=== PATIENT | female | born 2000 | race Caucasian/White ===

== ENCOUNTER 2024-04-18 09:39 | Outpatient (RCR) | payer OTHER, SELFPAY ==
[2024-04-18 11:15] VITALS: BP 99/66; PULSE 100; TEMP 36.1; O2SAT 100
[2024-04-18] MEDS: RHO(D) IMMUNE GLOBULIN 1,500 UNIT SYRINGE 1500 UNIT IM (11:15)
--- NOTE | 2024-04-18 11:29 | PC.NURSE ---
1115: Pt. to [facility] amb. for Rhogam injection. Seated in recliner. VSS. Blood type verified. Medicated with Rhophylac IM see documentation. No bleeding to injection site, bandaid placed prophylactically. Pt. tolerated with minimal c/o pain. Pt. has received medication in past without adverse reaction. Denies questions or concerns. 1126: D/c'd amb to home.
== END 2024-05-04 23:59 | disposition home or self-care (01) ==
LOC: INF 09:39
PROVIDERS: PCP Family Medicine; Visit Provider Midwife
DX: O26.893 Other specified pregnancy related conditions, third trimester (principal); Z67.91 Unspecified blood type, Rh negative; Z3A.00 Weeks of gestation of pregnancy not specified
CPT/HCPCS: 36415; 86850; 86900; 86901; 96372; J2791

== ENCOUNTER 2024-06-23 19:36 | Inpatient (IN) | payer OTHER, SELFPAY ==
[2024-06-23] VITALS (15 sets, daily range): BP systolic 115–141; BP diastolic 56–84; PULSE 100–126
--- OUTSIDE RECORDS SUMMARY | 2024-06-23 19:40 | XMS_ITS | CCD ---
Author Organization [facility] Inform ion Partnership [facility] Care Team Providers Care Submersible Pilot Name Role Phone Unavailable Primary Care Provider VAISHALI Jordan Attending Unavailable FELICITAS BOOTHE Referring Unavailable Urbano Rich MD Primary Care Provider [phone] FLORO, ISIDRA L Attending Unavailable FLORO, ISIDRA L Referring Unavailable FLORO, ISIDRA L Attending Unavailable FLORO, ISIDRA L Attending Unavailable FLORO, ISIDRA L Referring Unavailable FLORO, ISIDRA L Attending Unavailable FLORO, ISIDRA L Attending Unavailable FLORO, ISIDRA L Referring Unavailable FLORO, ISIDRA L Attending Unavailable FLORO, ISIDRA L Attending Unavailable FLORO, ISIDRA L Attending Unavailable FLORO, ISIDRA L Attending Unavailable Medications Current Medications Medication Drug Class(es) Dates Sig (Normalized) Sig (Original) multivit 82-oivd-ifrpjp 1-dha (PNV-DHA) 27 mg iron-1 mg -300 mg capsule (2 sources) Start: 08-29-2023 take 1 capsule by mouth in the morning multivit 13-lkdf-gigtek 1-dha (PNV-DHA) 27 mg iron-1 mg -300 mg capsule Indications: Desire for Take 1 capsule by mouth in the morning. 90 capsule 3 08/29/2023 Active Prenat w/o F-CD-Yizsyal-FA-DHA (PNV-DHA) 27-0.6-0.4-300 MG capsule (6 sources) Start: 08-29-2023 take 1 capsule by mouth in the morning Prenat w/o F-KL-Stqrlsw-FA-DH A (PNV-DHA) 27-0.6-0.4-300 MG capsule Take 1 capsule by mouth in the morning. 08/29/2023 Active Problems Active Problems Problem Classification Problem Date Documented Da te Episodic/Chronic Contraceptive and procreative management (4 sources) Social and personal history finding; Translations: [Encounter for procreative management, unspecified] Onset: 08-29-2023 08-29-2023 Episodic Other complications of (2 sources) RhD negative; Translations: [Other specified related conditions, third trimester] 2024 Episodic Other and delivery including normal (4 sources) Normal ; Translations: [Encounter for supervision of other normal , third trimester] 06-05-2024 Episodic Other screening for suspected conditions (not mental disorders or infectious disease) (3 sources) Encounter for screening for malignant neoplasm of vagina; Translations: [Patient encounter status] Onset: 09-20-2023 06-05-2024 Episodic Unclassified (1 source) Annual Exam Onset: 09-20-2023 Past or Other Problems Problem Classification Problem Date Documented Da te Episodic/Chronic Mood disorders (1 source) Mood disorders Onset: 09-20-2023 09-20-2023 Results Test Name Value Interpretation Reference Range Facil ity US OB FOLLOW UP TRANSABDOMIN AL APPROACHon 04-24-2024 US OB FOLLOW UP TRANSABDOMINAL APPROACH TITLE OF EXAM: OB Ultrasound: REASON FOR EXAM: Growth. TECHNIQUE: Grayscale and color Doppler imaging is performed. Measurements: heart rate: 143 bpm CHAKA: 14.9 cm (9.0-23.4) BPD: 7.7 cm HC: 27.6 cm AC: 26.0 cm FL: 5.8 cm GA for sonogram: 30.0 wk (28.2-31.8) Cervix length: 3.7 cm HARLEY: 07/03/2024 Weight Estimate: Weight: 1542 gm / 3lbs, 6 oz (9733-6086 gm) [place]lock Normal: 1559 gm (8308-3918 gm) Hadlock Wt%: 47% for 30.0 wks CLINICAL SUMMARY: A single intrauterine is noted in cephalic presentation. heart is observed with a heart rate of 143 BPM. growth: Consistent with normal growth. Placenta is located posteriorly. Placenta is Grade I/III Amniotic fluid volume is normal. Limited study. Full anatomical survey not performed. Dictated and transcribed 04/25/24/dpd This report has been electronically signed and approved by the interpreting radiologist. Electronically Signed Werner Astudillo M.D. 2024-04-25 16:43:45 Normal Not Available US OB 14+ WEEKS ANATOMY SCAN on 02-15-2024 US OB 14+ WEEKS ANATOMY SCAN FINDINGS: A single, live intrauterine is present with normal cardiac rate of 147 beats per minute. Normal activity and amniotic fluid volume. Amniotic fluid index is 13 cm. Morphology is grossly normal. The cervix is long and closed, 4.1 cm. The placenta is posterior, not associated with the cervical os. The current sonographic age is 20 weeks and 1 day, based on the following measurements: BPD 4.7 cm (20 weeks, 0 days) Head Circumference 17.5 cm (20 weeks, 0 days) Abdominal Circumference 15.1 cm (20 weeks, 2 days) Femur Length 3.2 cm (20 weeks, 1 day) Presentation Breech Placenta Posterior Weight (g) by Percentile 47.6 % * These measurements result in an estimated date of delivery of July 03, 2024. The current estimated weight is 338 grams (0 pounds, 12 ounces). IMPRESSION: Single, live intrauterine , current sonographic age of 20 weeks and 1 day, with an estimated date of delivery of July 03, 2024. * Estimated Weight (g) by Percentile is based upon an accurate estimated age based on last menstrual period. TRANSCRIBED BY: ELECTRONICALLY SIGNED BY: Domenico Leach MD Normal Not Available US OB < 14 WEEKS EARLYon US OB < 14 WEEKS EARLY CLINICAL HISTORY: Dating. Amenorrhea. Age by LMP of 10 weeks 1 day COMPARISON: None available for this TECHNIQUE: Transabdominal and transvaginal ultrasound was performed of the pelvis. RESULT: An approximately 4.9 cm in average dimension gestational sac is present within the central aspect of the uterine body/fundus, without significant surrounding subchorionic hemorrhage. Yolk sac not visualized. [place] rump length measures 3.5 cm, which corresponds to 10 weeks 3 days. The estimated date of delivery by measurements is: 06/30/2024. The estimated date of delivery by LMP is: 07/03/2024. cardiac activity measures approximately 153, without visualized arrhythmia. The cervix appears closed, measuring approximately 4.2 cm. There is no significant free fluid, or other findings of concern. The uterus measures: 10.5 x 9.1 x 5.9 cm. The right ovary was not visualized. The left ovary measures: 2.5 x 2.0 x 1.7 cm. IMPRESSION: SINGLE LIVE INTRAUTERINE CORRESPONDING TO 10 weeks 3 days NO OTHER FINDINGS OF CONCERN. ELECTRONICALLY SIGNED BY: Shantanu Holland MD Normal Not Available Cytologyon 09-20-2023 Cytology Normal [facility] Comment on above: Result Comment: [facility] [address] [place] [address] Gynecologic Cytology Consultation Patient Name:CHEYANNE CARRANZA:2000 (Age: 23)Gender:FTaken:4Reported:4Physician(s):Felicitas Boothe C.N.M. ([phone])Copy To: Rec. #:[id number]: #[id number] Final Cytologic Interpretation ThinPrep Pap Test (Cervical): Satisfactory for evaluation. A transformation zone component is present. Partially obscuring lubricant-type artifact present. NEGATIVE FOR INTRAEPITHELIAL LESION OR MALIGNANCY. [facility]/09/27/2023 [place] [address], License number: [id number]. Electronically Signed Out By PHIL Aparicio(ASCP) Date of Last Menstrual Period: (None Given) Other Clinical Conditions: Z01.419 Home Health Physical Therapist exam wo/abn findings Z12.72 Screeing for malignant neoplasm of vagina Source of Specimen ThinPrep Pap Test (Cervical) Thin Prep Pap (WELDING MACHINE OPERATOR THERMIT) Fee Code(s): G0145 Vital Signs Date Time Vital Sign Value Performing Clinician Gianna white 2024 08:54-0400 Body mass index (BMI) [Ratio] 27.72 kg/m2 Isidra Rowe [facility] Work Phone: [facility] 2024 08:54-0400 Body weight 80.29 kg Isidra Rowe [facility] Work Phone: [facility] 2024 08:54-0400 Diastolic blood pressure 70 mm[Hg] Isidra Floro CNM Work Phone: [facility] 2024 08:54-0400 Systolic blood pressure 118 mm[Hg] Isidra Floro CNM Work Phone: [facility] 06-05-2024 08:45-0400 Body mass index (BMI) [Ratio] 27.41 kg/m2 Isidra Floro CNM Work Phone: [facility] 06-05-2024 08:45-0400 Body weight 79.38 kg Isirda Floro CNM Work Phone: [facility] 06-05-2024 08:45-0400 Diastolic blood pressure 80 mm[Hg] Isidra Floro CNM Work Phone: [facility] 06-05-2024 08:45-0400 Systolic blood pressure 118 mm[Hg] Isidra Floro CNM Work Phone: [facility] 09-20-2023 15:07-0500 Body height 170.2 cm [facility] 09-20-2023 15:07-0500 Body mass index (BMI) [Ratio] 22.84 kg/m2 [facility] 09-20-2023 15:07-0500 Body weight 66.13 kg [facility] 09-20-2023 15:07-0500 Diastolic blood pressure 64 mm[Hg] [facility] 09-20-2023 15:07-0500 Systolic blood pressure 112 mm[Hg] [facility] 08-29-2023 14:22-0500 Body height 170.2 cm Vaishali Bowden APRN-HEAVY LIFT RIGGER Work Phone: [facility] 08-29-2023 14:22-0500 Body mass index (BMI) [Ratio] 23.05 kg/m2 Vaishali Bowden APRN-HEAVY LIFT RIGGER Work Phone: [facility] 08-29-2023 14:22-0500 Body weight 66.77 kg Vaishali Bowden QUALITY SYSTEMS MANAGER-HEAVY LIFT RIGGER Work Phone: [facility] [employer] [facility] 08-29-2023 14:22-0500 Diastolic blood pressure 62 mm[Hg] Vaishali Bowden QUALITY SYSTEMS MANAGER-HEAVY LIFT RIGGER Work Phone: [facility] [employer] [facility] 08-29-2023 14:22-0500 Systolic blood pressure 116 mm[Hg] Vaishali Bowden QUALITY SYSTEMS MANAGER-HEAVY LIFT RIGGER Work Phone: [facility] Encounters Encounter Date Encounter Type Care Provider Facility Start: 2024 End: 2024 Bamboo flowsheet Isidra L Floro CNM Work Phone: [facility] Start: 2024 End: 2024 Bamboo flowsheet Isidra L Floro CNM Work Phone: [facility] Start: 2024 End: 2024 ambulatory ISIDRA L FLORO Not Available Start: 2024 End: 2024 Subsequent care visit Isidra L Floro CNM Work Phone: [facility] Comment on above: Encounter for superv ision of other normal , third trimester (Primary Dx); Rh negative state in antepartum period, third trimester Start: 06-05-2024 End: 06-05-2024 Bamboo flowsheet Isidra L Floro CNM Work Phone: [facility] Start: 06-05-2024 End: 06-05-2024 Bamboo flowsheet Isidra L Floro CNM Work Phone: [facility] Start: 06-05-2024 End: 06-05-2024 ambulatory ISIDRA L FLORO Not Available Start: 06-05-2024 End: 06-05-2024 Subsequent care visit Isidra L Floro CNM Work Phone: [facility] Comment on above: Encounter for superv ision of other normal , third trimester (Primary Dx); screening for streptococcus B Start: 05-28-2024 End: 05-28-2024 ambulatory ISIDRA L FLORO Not Available Start: 05-08-2024 End: 05-08-2024 ambulatory ISIDRA L FLORO Not Available Start: 04-24-2024 End: 04-24-2024 ambulatory ISIDRA L FLORO Not Available Start: 04-10-2024 End: 04-10-2024 ambulatory ISIDRA L FLORO Not Available Start: 03-05-2024 End: 03-05-2024 ambulatory ISIDRA L FLORO Not Available Start: 02-15-2024 End: 02-15-2024 ambulatory ISIDRA L FLORO Not Available Start: 02-01-2024 End: 02-01-2024 ambulatory ISIDRA L FLORO Not Available Start: 01-04-2024 End: 01-04-2024 ambulatory ISIDRA L FLORO Not Available Start: 12-07-2023 End: 12-07-2023 ambulatory ISIDRA L FLORO Not Available Start: 09-20-2023 End: 09-20-2023 ambulatory [facility] Start: 09-20-2023 Encounter for gynecological examination (general) (routine) without abnormal findings [facility] Start: 09-20-2023 End: 09-20-2023 Initial preventive medicine new pt age 18-39yrs [facility] Bull Gang Worker [facility] Comment on above: Well woman exam with routine gynecological exam (Primary Dx); Smear, vaginal, as part of routine gynecological examination Start: 09-20-2023 End: 09-20-2023 Patient encounter procedure [facility] Work Phone: Start: 09-20-2023 End: 09-20-2023 Patient encounter status [facility] Start: 09-20-2023 End: 09-21-2023 ambulatory [facility] Start: 09-20-2023 Encounter for gynecological examination (general) (routine) without abnormal findings [facility] Start: 08-29-2023 End: 08-29-2023 ambulatory VAISHALI BOWDEN [facility] Start: 08-29-2023 End: 08-29-2023 Patient encounter procedure Vaishali Bowden QUALITY SYSTEMS MANAGER-HEAVY LIFT RIGGER Work Phone: [facility] Comment on above: Encounter for Nexpla non removal (Primary Dx); Desire for Procedures Date Procedure Procedure Detail Performing Clinician Start: 09-20-2023 Adult depression scr eening assessment [facility] Bull Gang Worker Plan of Treatment Date Care Activity Detail Author Start: 09-20-2024 Adult BMI Screening Adult BMI Screen ing [facility] Start: 09-20-2024 Depression Screening Depression Scre ening [facility] Start: 09-20-2024 Tobacco Screening Tobacco Screening [facility] Start: 08-29-2024 Adult BMI Screening Adult BMI Screen ing [facility] Start: 08-29-2024 Tobacco Screening Tobacco Screening [facility] Start: 07-01-2024 End: 07-01-2024 Patient encounter procedure 07/01/2024 1:30 PM EDT Routine [facility] [address] [place] [address] Isidra Rowe, CNM [address] [place] [address] [facility] Start: 06-24-2024 End: 06-24-2024 Patient encounter procedure 06/24/2024 2:30 PM EDT Routine [facility] [address] [place] [address] Isidra Rowe, CNM [address] [place] [address] [facility] Start: 2024 End: 2024 Patient encounter procedure 2024 8:45 AM EDT Routine [facility] [address] [place] [id number] Isidra Rowe, CNM [address] [place] [address] [facility] Start: 06-05-2024 End: 06-05-2025 STREPTOCCOUS, GROUP B CULTURE STREPTOCCOUS, GROUP B CULTURE Lab Routine screening for streptococcus B Expected: 06/05/2024 (Approximate), Expires: 06/05/2025 [facility] Work Phone: Comment on above: Expected: 06/05/2024 (Approximate), Expires: 06/05/2025 Start: 05-05-2024 Influenza vaccination Influenza Vacc ine (#1) [facility] Start: 09-20-2023 End: 09-20-2023 Patient encounter procedure 09/20/2023 2:45 PM EST Office Visit [facility] [address] [place] [place] [address] [facility] Start: 05-05-2023 Influenza vaccination Influenza Vacc ine [facility] Start: 2019 Screening for malign ant neoplasm of cervix Pap Smear [facility] Start: 2017 DTaP,Tdap and Td Vaccines (1 - Tdap) DTaP,Tdap and Td Vaccines (1 - Tdap) [facility] Start: 2010 Depression Screening Depression [facility] End: 09-20-2024 Cytopathology procedure, preparation of smear, genital source Pap Smear Pathology and Cytology Routine Smear, vaginal, as part of routine gynecological examination 1 Occurrences starting 09/20/2023 until 09/20/2024 [facility] Work Phone: Comment on above: 1 Occurrences starti ng 09/20/2023 until 09/20/2024 Immunizations Immunization Date Immunization Notes Care Provider Fa cility 09-11-2020 influenza virus vacc ine, unspecified formulation Isidra Rowe CNM Work Phone: [facility] Healthcare Payers Date Payer Category Payer Unknown [id number] 2023 Unknown 2023 Unknown [id number] 2000 Unknown [id number] 2.16.84 [id number] 2000 Unknown [id number] 2.16.84 0.1.680770.3.579.2.1286 2000 Unknown [id number] 2.16.84 0.1.574416.3.579.2.1286 2000 Unknown [id number] 2.16.84 0.1.043171.3.579.2.1259 2000 Unknown [id number] 2.16.84 0.1.928532.3.579.2.1259 2000 Unknown [id number] 2.16.84 0.1.844902.3.579.2.1259 2000 Unknown [id number] 2.16.84 0.1.563257.3.579.2.1259 2000 Unknown [id number] 2.16.84 0.1.646964.3.579.2.1259 2000 Unknown [id number] 2.16.84 0.1.718132.3.579.2.1259 1998 Unknown [id number] 2.16.84 0.1.034105.3.579.2.1259 1998 Unknown [id number] 2.16.84 0.1.543904.3.579.2.1259 1998 Unknown [id number] 2.16.84 0.1.351246.3.579.2.1259 1998 Unknown [id number] 2.16.84 0.1.393571.3.579.2.1259 1998 Unknown [id number] 2.16.84 0.1.377246.3.579.2.1259 2000 Unknown [id number] 2.16.84 0.1.053781.3.579.2.1259 Social History Date Type Detail Facility Start: 08-29-2023 End: 12-07-2023 Tobacco smoking status NHIS Never smoked tobacco [facility] Start: 08-29-2023 End: 12-07-2023 Tobacco use and exposure Smokeless tobacco non-user [facility] Start: 08-29-2023 End: 09-20-2023 Alcohol intake Current drinker of alcohol (finding) [facility] Start: 08-29-2023 End: 12-07-2023 History of Social function [facility] Start: 08-29-2023 End: 12-07-2023 Tobacco use panel [facility] Housing Instability Unknown [facility] Start: 08-29-2023 Alcohol Comment social [facility] Start: 2000 Sex Assigned At Not on file P [facility] How often to you hav e a drink containing alcohol? Monthly or less [facility] How many standard dr inks containing alcohol do you have on a typical day? 3 or 4 [facility] How often do you hav e 6 or more drinks on 1 occasion? Never [facility] Start: 12-07-2023 Alcoholic beverage intake Ex-drinker (finding) [facility] Start: 10-11-2023 [facility] History of Present illness Narrative 2024 Isidra Rowe CNM - 2024 8:45 AM EDT Note Date & Type Note Facility 2024 History of Presen t illness Narrative Subjective No chief complaint on file. Cheyanne Carranza is a 24 y.o. at 37w0d with a working estimated date of delivery of 07/03/2024, by Last Menstrual Period who presents for a routine visit. She denies vaginal bleeding, leakage of fluid, decreased movements, or contractions. OB History Para Term AB Living 2 1 1 1 SAB IAB Ectopic Multiple Live Births 1 # Outcome Date GA Lbr Nathan/2nd Weight Sex Type Anes PTL Lv 2 Current 1 Term 11/23/20 38w0d 7 lb 4 oz M Vag-Spont N DEVANG Her is complicated by: Rh- negative Objective Physical Exam weight: 177 lb Expected Total Weight Gain: 25 lb-35 lb Pregravid BMI: 23.49 BP: 118/70 Urine protein- negative Urine glucose- negative Assessment/Plan Diagnoses and all orders for this visit: Encounter for supervision of other normal , third trimester Rh negative state in antepartum period, third trimester Continue vitamin. Labs reviewed. GBS taken. Expected mode of delivery Follow up in 1 week for a routine visit. documented in this encounter [facility] History of Present illness Narrative 06-05-2024 Isidra Rowe CNM - 06/05/2024 8:45 AM EDT Note Date & Type Note Facility 06-05-2024 History of Presen t illness Narrative Subjective No chief complaint on file. Cheyanne Carranza is a 23 y.o. at 36w0d with a working estimated date of delivery of 07/03/2024, by Last Menstrual Period who presents for a routine visit. She denies vaginal bleeding, leakage of fluid, decreased movements, or contractions. OB History Para Term AB Living 2 1 1 1 SAB IAB Ectopic Multiple Live Births 1 # Outcome Date GA Lbr Nathan/2nd Weight Sex Type Anes PTL Lv 2 Current 1 Term 11/23/20 38w0d 7 lb 4 oz M Vag-Spont N DEVANG Her is complicated by: Objective Physical Exam weight: 175 lb Expected Total Weight Gain: 25 lb-35 lb Pregravid BMI: 23.49 BP: 118/80 Urine protein-negative Urine glucose-negative Assessment/Plan Diagnoses and all orders for this visit: Encounter for supervision of other normal , third trimester screening for streptococcus B - STREPTOCCOUS, GROUP B CULTURE; Future Continue vitamin. Labs reviewed. GBS obtained today Expected mode of delivery Follow up in 1 week for a routine visit. documented in this encounter [facility] History of Present illness Narrative 09-20-2023 ATILIO Bishop - 09/20/2023 2:45 PM EST Note Date & Type Note Facility 09-20-2023 History of Present illness Narrative Annual Well Woman Visit 09/20/2023 Subjective Cheyanne Carranza is a 23 y.o. 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 Periods are regular every 28-30 days, lasting 4 days. Dysmenorrhea:mild, occurring first 1-2 days of flow. Cyclic symptoms include none. intermenstrual bleeding, spotting, or abnormal discharge. denies pelvic pain. Patient declines STD testing today. Pt. Reports improvement in mood since having nexplanon removed about 3wks. Ago. Complaints today: none Relationship status: The patient reports that there is not domestic violence in her life. Sexually active: Yes Contraception: no method, trying to conceive. Has had nexplanon removed 3 wks. Ago. 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 Ago age 19, wnl Regular self breast exam: no Last mammogram: N/A Covid vaccinated: no Flu shot this flu season: no; declines HPV vaccinated: rec.'d PHQ9 depression screenin LMP 08/08/2023 OB History 1 Para 1 Term 1 AB Living SAB IAB Ectopic Multiple Live Births The following portions of the patient's history were reviewed and updated as appropriate: allergies, current medications, past family history, past medical history, past social history, past surgical history and problem list. MEDICAL HX Past Medical History: Diagnosis Date Back pain PTSD (post-traumatic stress disorder) SURGICAL HX No past surgical history on file. FAMILY HX Family History Problem Relation Age of Onset Hypertension Paternal Grandmother Diabetes Maternal Grandmother MEDS Current Outpatient Medications Medication Sig Dispense Refill multivit 90-adtf-okdjwv 1-dha (PNV-DHA) 27 mg iron-1 mg -300 mg capsule Take 1 capsule by mouth in the morning. 90 capsule 3 No current facility-administered medications for this visit. ALLERGIES No Known Allergies Review of Systems Review of Systems Constitutional: Negative for chills and fever. HENT: Negative for ear pain, sinus pain and sore throat. Eyes: Negative for pain. Respiratory: Negative for cough and shortness of breath. Cardiovascular: Negative for chest pain and palpitations. Gastrointestinal: Negative for abdominal pain, constipation, diarrhea, nausea and vomiting. Genitourinary: Negative for difficulty urinating, dyspareunia, dysuria, pelvic pain and vaginal discharge. Skin: Negative for rash and wound. Psychiatric/Behavioral: Positive for dysphoric mood. The patient is nervous/anxious. Pt. Denies suicidal and homicidal ideations. She denies suicidal attempts in her past. Pt. [facility] whom she saw once. He has referred her to a female counselor w/whom she will have a telehealth visit next week for PTSD and depression. Objective BP 112/64 Ht 170.2 cm (5' 7 ) Wt 66.1 kg (145 lb 12.8 oz) LMP 08/08/2023 (Exact Date) BMI 22.84 kg/m Physical Exam Vitals and nursing note reviewed. Constitutional: Appearance: Normal appearance. She is normal weight. HENT: Head: Normocephalic and atraumatic. Eyes: Conjunctiva/sclera: Conjunctivae normal. Neck: Thyroid: No thyroid mass, thyromegaly or thyroid tenderness. Trachea: Trachea normal. Cardiovascular: Rate and Rhythm: Normal rate and regular rhythm. Heart sounds: Normal heart sounds. Pulmonary: Effort: Pulmonary effort is normal. Breath sounds: Normal breath sounds. Chest: Chest wall: No mass, lacerations, deformity, swelling or tenderness. Breasts: Breasts are symmetrical. Right: Normal. Left: Normal. Abdominal: General: Abdomen is flat. There is no distension. Palpations: Abdomen is soft. There is no mass. Tenderness: There is no abdominal tenderness. There is no guarding or rebound. Hernia: No hernia is present. Genitourinary: General: Normal vulva. Exam position: Supine. Pubic Area: No rash or pubic lice. Labia: Right: No rash, tenderness, lesion or injury. Left: No rash, tenderness, lesion or injury. Urethra: No prolapse, urethral pain, urethral swelling or urethral lesion. Vagina: Normal. Cervix: Normal. Uterus: Normal. Adnexa: Right adnexa normal and left adnexa normal. Rectum: No external hemorrhoid. Musculoskeletal: Cervical back: Neck supple. No rigidity or tenderness. Lymphadenopathy: Cervical: No cervical adenopathy. Upper Body: Right upper body: No axillary adenopathy. Left upper body: No axillary adenopathy. Skin: General: Skin is warm and dry. Neurological: General: No focal deficit present. Mental Status: She is alert. Psychiatric: Mood and Affect: Mood normal. Behavior: Behavior normal. Thought Content: Thought content normal. Judgment: Judgment normal. Assessment/Plan: Cheyanne was seen today for annual exam. Diagnoses and all orders for this visit: Well woman exam with routine gynecological exam Smear, vaginal, as part of routine gynecological examination - Pap Smear; Future BMI is in the acceptable range. Breast self exam technique reviewed and patient encouraged to perform self-exam monthly. Discussed healthy lifestyle modifications. Educational material distributed. Follow up in 1 year for annual lab support technician exam. Follow up as needed. Next pap due pending results of today's per ASCCP guidelines. Discussed taking a multivitamin. Discussed Genesite testing for genetic evaluation of response to antidepressants and brochure provided to pt. Discussed need for yearly mammogram after 40 yo. Continue vitamin, discussed avoidance of toxic substances All questions answered. F/U for or no after 6mo. Of trying and annual exam in a yr. ATILIO Diego APRN-CNM 09/20/23 1720 documented in this encounter [facility] History of Present illness Narrative 08-29-2023 KISHOR Subramanian - 08/29/2023 2:30 PM EST Note Date & Type Note Facility 08-29-2023 History of Presen t illness Narrative Nexplanon Contraceptive Implant Removal Cheyanne Carranza is a new patient who presents for the removal of the Nexplanon. Reason(s) for removal: Desires Her future method of contraception: no method- planning to conceive BP 116/62 Ht 170.2 cm (5' 7 ) Wt 66.8 kg (147 lb 3.2 oz) LMP 08/08/2023 (Exact Date) BMI 23.05 kg/m Procedure: Implant identified. Left upper arm prepped with betadine x 3. 1 ml. 1% xylocaine injected at planned incision site. An incision 2-3 mm was performed with a #15 scalpel at the distal end of implant. The implant was removed using pop out technique. The implant was inspected and found to be intact and complete. Steri strips and a pressure dressing were applied to the site. Removal was confirmed with the patient. After removal instructions were given and verbally reviewed with the patient who acknowledged her understanding. Patient tolerated procedure well yes Patient due for annual / pap. RX sent for vitamins. All questions answered. Educational material provided. ANA FUNES APRN-CNP Lisa M Franco, APRN-CNP 08/29/23 1505 documented in this encounter [facility] Evaluation note Note Date & Type Note Facility Evaluation note Diagnosis Encounter for Nexplanon removal- Primary Desire for documented in this encounter [facility] Evaluation note Note Date & Type Note Facility Evaluation note Diagnosis Well woman exam with routine gynecological exam- Primary Routine gynecological examination Smear, vaginal, as part of routine gynecological examination Special screening for malignant neoplasms, vagina documented in this encounter [facility] Evaluation note Note Date & Type Note Facility Evaluation note Diagnosis Encounter for supervision of other normal , third trimester- Primary screening for streptococcus B screening for Streptococcus B documented in this encounter [facility] Evaluation note Note Date & Type Note Facility Evaluation note Diagnosis Encounter for supervision of other normal , third trimester- Primary Rh negative state in antepartum period, third trimester documented in this encounter [facility] Instructions Attachments Note Date & Type Note Facility Instructions The following attachments cannot be sent through Care Everywhere.How to plan and prepare for a healthy (Guyanese)documented in this encounter [facility] Instructions Attachments Note Date & Type Note Facility Instructions The following attachments cannot be sent through Care Everywhere.How to Perform Breast Self-Examination (Guyanese)documented in this encounter [facility] Summary Purpose Family History No Family History Records FoundNo Family History Records FoundNo Family History Records Found Advance Directives No Advanced Directives Records FoundNo Advanced Directives Records FoundNo Advanced Directives Records Found Additional Source Comments Reason for Visit (unrecogniz ed section and content) Reason Comments Contraception Reason Comments Annual Exam INFORMATION SOURCE (unrecogn ized section and content) DATE CREATED AUTHOR 09/23/2023 [facility] DATE CREATED AUTHOR AUTHOR'S ORGANIZ ATION 10/01/2023 [facility] DATE CREATED AUTHOR AUTHOR'S ASHLEY DAI 06/17/2024 [facility] Care Teams (unrecognized sec tion and content) Submersible Pilot Relationship Specialty Start Date End Date Urbano Rich MD [address] [facility] [address] [place] [address] PCP - General Family Medicine 01/10/23 Submersible Pilot Relationship Specialty Start Date End Date Urbano Rich MD [address] [facility] [address] [place] [address] PCP - General Family Medicine 01/10/23 Submersible Pilot Relationship Specialty Start Date End Date Urbano Rich MD [address] [facility] [address] [place] [address] PCP - General Family Medicine 01/10/23 Submersible Pilot Relationship Specialty Start Date End Date Urbano Rich MD [address] [facility] [address] [place] [address] PCP - General Family Medicine 01/10/23 FOR RECORDS PERTAINING TO PATIENTS WHO ARE OR HAVE BEEN ENROLLED IN A CHEMICAL DEPENDENCY/SUBSTANCEABUSE PROGRAM, SOME INFORMATION MAY BE OMITTED. This clinical summary was aggregated from multiple sources. Caution should be exercised in using it in the provision of clinical care. This summary normalizes information from multiple sources, and as a consequence, information in this document may materially change the coding, format and clinical context of patient data. In addition, data may be omitted in some cases. CLINICAL DECISIONS SHOULD BE BASED ON THE PRIMARY CLINICAL RECORDS. [employer] provides no warranty or guarantee of the accuracy or completeness of information in this document.
[2024-06-23 20:41] LABS: Bilirubin Urine NEGATIVE (NEGATIVE); Blood Urine MODERATE (NEGATIVE); Clarity Urine CLEAR (CLEAR); Color Urine YELLOW (YELLOW); Glucose Urine UA NEGATIVE (NEGATIVE); Ketones Urine NEGATIVE (NEGATIVE); Leukocyte Esterase Urine NEGATIVE (NEGATIVE); Nitrite Urine NEGATIVE (NEGATIVE); Protein Urine NEGATIVE (NEG/TRACE); Specific Gravity Urine >=1.030 (1.005-1.025)
[2024-06-23 20:43] LABS: Urine Microscopic Indicated YES
[2024-06-23 20:49] LABS: Bacteria Urine SMALL #/HPF (NONE SEEN); Cast Seen? NONE SEEN #/LPF (NONE SEEN); Crystals Seen? None Seen #/HPF (None Seen); Mucus Urine LARGE (NONE SEEN); RBC Urine 0-2 #/HPF (0-2); Squamous Epithelial Cell Urine MANY #/LPF (NONE/RARE); Urine Culture Indicated YES
[2024-06-23] MEDS: 0.9 % SODIUM CHLORIDE 1,000 ML 150 ML IV (21:30)
[2024-06-23 22:14] LABS: Hemoglobin 11.1 g/dL (12.0-16.0); Mean Corpuscular HGB Conc 32.6 g/dL (29.9-35.2); Mean Corpuscular Hemoglobin 28.7 pg (26.7-34.0); Mean Corpuscular Volume 87.9 fL (81.0-99.0); Mean Platelet Volume 11.4 fL (9.5-13.5); Platelet Count 216 10^3/uL (150-450); Red Blood Count 3.87 10^6/uL (4.20-5.40); Red Cell Distribution Width 13.3 % (11.0-15.0); White Blood Count 11.4 10^3/uL (4.0-11.0)
[2024-06-23 22:26] LABS: Amphetamine Screen Urine NEGATIVE (NEGATIVE); Barbiturates Screen Urine NEGATIVE (NEGATIVE); Benzodiazepines Screen Urine NEGATIVE (NEGATIVE); Buprenorphine Screen Urine NEGATIVE (NEGATIVE); Cannabinoid Screen Urine NEGATIVE (NEGATIVE); Cocaine Screen Urine NEGATIVE (NEGATIVE); Methadone Screen Urine NEGATIVE (NEGATIVE); Methamphetamines Screen Urine NEGATIVE (NEGATIVE); Opiate Screen Urine NEGATIVE (NEGATIVE); Oxycodone Screen Urine NEGATIVE (NEGATIVE); Phencyclidine Screen Urine NEGATIVE (NEGATIVE); Tricyclic Antidepressant Urine NEGATIVE (NEGATIVE)
[2024-06-23] MEDS: ROPIVACAINE HCL/PF 400 MG/200 ML PREMIX 10 MG EPIDURAL (22:57)
[2024-06-23] MEDS: 0.9 % SODIUM CHLORIDE 1,000 ML 125 ML IV (23:10)
[2024-06-24] VITALS (17 sets, daily range): BP systolic 97–135; BP diastolic 53–77; PULSE 70–133; TEMP 36.6–36.9
[2024-06-24] MEDS: OXYTOCIN/0.9 % SODIUM CHLORIDE 20 UNITS/1,000 ML PLAST..BAG 125 UNIT IV (00:59)
--- NOTE | 2024-06-24 01:03 | PM.OBPRCVD ---
Procedure Intrapartal events: None Induction method: none Delivery augmentation: rupture of membranes Delivery monitor: external FHT and external uterine Route of delivery: Episiotomy Description: none L&D Laceration Description: periurethral - 1st degree Delivery repair: Vicryl Estimated blood loss (mL): 250 Anesthesia type: Epidural Disposition: floor Infant Delivery date: 06/24/24 Gender: male presentation: vertex Placental delivery description: Spontaneous cord description: 3 Vessels
[2024-06-24] MEDS: IBUPROFEN 600 MG TABLET PO ×3 (04:44→21:40)
[2024-06-24] MEDS: GLYCERIN/WITCH HAZEL PADS 1 PAD TOPICAL (04:45)
[2024-06-24] MEDS: BENZOCAINE/MENTHOL 85 GRAM SPRAY BOTTLE 1 APPLIC TOPICAL (04:46)
[2024-06-24] MEDS: SERTRALINE HCL 50 MG TABLET PO (10:44)
[2024-06-24] MEDS: RHO(D) IMMUNE GLOBULIN 1,500 UNIT SYRINGE 1500 UNIT IV (10:44)
--- NOTE | 2024-06-24 19:04 | W.PC.ACHO ---
Registration Status: ADM IN Primary Language: Martiniquais Preferred Language: Martiniquais Reported on pain medication, HX of PPD & med started, status Active Medications Generic Name Dose Route Start Last Admin Trade Name Jennie PRN Reason Stop Dose Admin Acetaminophen 650 mg 06/24/24 01:04 Acetaminophen 325 Mg Tablet PO Q6H PRN Mild Pain Al Hydroxide/Mg Hydroxide 2,400 mg 06/24/24 01:04 Magnesium Hydroxide 2,400 Mg/10 Ml Oral.Susp PO Q6H PRN Dyspepsia Benzocaine/Menthol 1 applic 06/24/24 01:04 06/24/24 04:46 Benzocaine/Menthol 85 Gram [place] Bottle TOPICAL 1 applic Q2H PRN Administration Pain Carboprost Tromethamine 250 mcg 06/23/24 22:06 Carboprost Tromethamine 250 Mcg/Ml 1 Ml Vial IM 06/25/24 01:00 Q15M PRN Bleeding Diphtheria/Pertussis/Tetanus Vacc 0.5 ml 06/26/24 09:00 Adacel Diph,Pertuss(Acell),Tet Vac/Pf 0.5 Ml Adult Syringe IM 06/26/24 09:01 .ONCE ONE Docusate Sodium 100 mg 06/25/24 09:00 Docusate Sodium 100 Mg Capsule PO BID GERI Tranexamic Acid 1,000 mg/ 110 mls @ 440 mls/hr 06/23/24 22:06 Sodium Chloride IV 06/25/24 01:00 ONCE PRN Uterine Bleeding Sodium Chloride 1,000 mls @ 125 mls/hr 06/23/24 22:30 06/24/24 00:59 Sodium Chloride 0.9% 1,000 Ml IV Infused .Q8H GERI Infusion Ibuprofen 600 mg 06/24/24 01:04 06/24/24 15:15 Ibuprofen 600 Mg Tablet PO 600 mg Q6H PRN Administration Moderate Pain Measles/Mumps/Rubella Vaccine Live 0.5 ml 06/26/24 09:00 Measles,Mumps,Rubella Vacc/Pf 0.5 Ml Vial SQ 06/26/24 09:01 .ONCE ONE Methylergonovine Maleate 0.2 mg 06/23/24 22:06 Methylergonovine Maleate 0.2 Mg/Ml Ampule IM 06/25/24 01:00 ONCE PRN Uterine Contractility/Contract Methylergonovine Maleate 0.2 mg 06/23/24 22:06 Methylergonovine Maleate 0.2 Mg Tablet PO 06/25/24 01:00 Q4H PRN Uterine Contractility/Contract Misoprostol 600 mcg 06/23/24 22:06 Misoprostol 100 Mcg Tablet PO 06/25/24 01:00 ONCE PRN Uterine Bleeding Misoprostol 800 mcg 06/23/24 22:06 Misoprostol 100 Mcg Tablet SL 06/25/24 01:00 ONCE PRN Uterine Bleeding Misoprostol 1,000 mcg 06/23/24 22:06 Misoprostol 100 Mcg Tablet [place] 06/25/24 01:00 ONCE PRN Uterine Bleeding Ondansetron HCl 4 mg 06/23/24 22:06 Ondansetron Pf 4 Mg/2 Ml Vial IV Q6H PRN Nausea And Vomiting Ondansetron HCl 4 mg 06/23/24 22:06 Ondansetron 4 Mg Rapdis Tablet SL Q6H PRN Nausea And Vomiting Oxytocin 10 unit 06/23/24 22:06 Oxytocin 10 Unit/Ml Vial IM 06/25/24 01:00 ONCE PRN Bleeding Senna 17.2 mg 06/24/24 20:00 Sennosides 8.6 Mg Tablet PO QHS PRN Constipation Sertraline HCl 50 mg 06/24/24 10:15 06/24/24 10:44 Sertraline Hcl 50 Mg Tablet PO 50 mg QD GERI Administration Simethicone 80 mg 06/24/24 01:04 Simethicone 80 Mg Tab.Chew PO QID PRN Abdominal Distention Temazepam 15 mg 06/24/24 01:04 Temazepam 15 Mg Capsule PO QHS PRN Sleep [place]/Glycerin 1 pad 06/24/24 01:04 06/24/24 04:45 Glycerin/[place]itch [place] Pads TOPICAL 1 pad Q2H PRN Administration Pain Diet Category Date Time Status Regular Consistency Diet Diet 06/24/24 01:04 Active IV Insertion/Site Date of IV Line Insertion [20g 06/23/24 left Forearm] IV Insertion Time [20g left 21:25 Forearm] Neurology Patient orientation (short person,place,time,situation list) Respiratory Oxygen Delivery Method Room Air Oxygen Delivery Method Room Air Oxygen Delivery Method Room Air Oxygen Delivery Method Room Air Bowels Bowel Pattern No Bowel Movement Bowel Pattern No Bowel Movement Renal Bladder Pattern Continent Bladder Pattern Continent Catheter Urinary Catheter Date of 06/24/24 Insertion [Straight] Urinary Catheter Time of 00:20 Insertion [Straight] Date Urinary Catheter Removed 06/24/24 [Straight] Time Urinary Catheter 00:22 Discontinued [Straight]
[2024-06-24] MEDS: ACETAMINOPHEN 325 MG TABLET 650 MG PO (21:40)
[2024-06-25 00:45] VITALS: BP 107/51; PULSE 68
[2024-06-25] MEDS: IBUPROFEN 600 MG TABLET PO ×2 (03:58→21:45)
[2024-06-25] MEDS: ACETAMINOPHEN 325 MG TABLET 650 MG PO (03:59)
[2024-06-25 06:21] LABS: Basophils Percent Auto 0.2 % (0.2-2.0); Eosinophils Absolute Auto 0.1 10^3/uL (0.0-0.7); Eosinophils Percent Auto 0.7 % (0.9-7.0); Hematocrit 31.7 % (36.0-48.0); Hemoglobin 10.3 g/dL (12.0-16.0); Immature Granulocytes Abs Auto 0.04 10^3/uL (0.00-0.03); Immature Granulocytes Pct Auto 0.4 % (0.0-0.5); Lymphocytes Absolute Auto 2.3 10^3/uL (1.2-3.8); Lymphocytes Percent Auto 21.4 % (20.5-60.0); Mean Corpuscular HGB Conc 32.5 g/dL (29.9-35.2); Mean Corpuscular Volume 89.3 fL (81.0-99.0); Mean Platelet Volume 10.5 fL (9.5-13.5); Monocytes Absolute Auto 0.7 10^3/uL (0.3-0.8); Monocytes Percent Auto 6.1 % (1.7-12.0); Neutrophils Absolute Auto 7.7 10^3/uL (1.4-6.5); Neutrophils Percent Auto 71.2 % (43.0-75.0); Platelet Count 180 10^3/uL (150-450); Red Blood Count 3.55 10^6/uL (4.20-5.40); Red Cell Distribution Width 13.3 % (11.0-15.0); White Blood Count 10.7 10^3/uL (4.0-11.0)
--- NOTE | 2024-06-25 08:35 | PM.OBPN ---
OB - PN: Subj Subjective Patient comments: no complaints Meyers Chuck status: doing well and well Meyers Chuck feeding status: exclusively Exam Constitutional Vital Signs, click to edit/add: Last Vital Signs Temp 98.5 F 06/24/24 16:45 Pulse 68 06/25/24 00:45 Resp 16 06/24/24 16:45 BP 107/51 06/25/24 00:45 O2 Del Method Room Air 06/25/24 00:48 Documenting provider has reviewed patient's vital signs: yes Common normals: no apparent distress General appearance: cooperative and comfortable Orientation/consciousness: Yes awake, Yes oriented to person, Yes oriented to place and Yes oriented to time HENMT Common normals: normocephalic Eye Common normals: EOMs intact bilaterally General eye: normal appearance of both eyes Neck & C-Spine Common normals: full ROM and no lymphadenopathy Lymph Lymphatic: no lymphadenopathy noted Chest Common normals: inspection of chest normal Respiratory Common normals: normal respiratory effort, no retractions, no use of accessory muscles and clear to auscultation bilaterally Effort & inspection: able to speak in complete sentences Cardio Common normals: no JVD, regular rate and regular rhythm Rate: regular rate Rhythm: regular rhythm GI Common normals: Normal to inspection, nondistended, normoactive bowel sounds present Auscultation: normoactive bowel sounds Palpation: soft Common normals: no CVA tenderness Back & Pelvis Common normals: no CVA tenderness Thoracic spine/upper back: normal to inspection Extremity Common normals: normal to inspection and full ROM Neuro Common normals: oriented x3 Sensorium/orientation: awake, alert, oriented to person, oriented to place and oriented to time Psych Common normals: mental status grossly normal, thought process normal, cooperative, affect normal, speech normal, activity/motor behavior normal, denies hallucinations, denies homicidal ideation and denies suicidal ideation Attitude: calm Speech: normal speech Thought process: normal thought process Results Labs Labs: Short CBC 06/25/24 Range/Units 06:13 WBC 10.7 (4.0-11.0) 10^3/uL Hgb 10.3 L (12.0-16.0) g/dL Hct 31.7 L (36.0-48.0) % Plt Count 180 (150-450) 10^3/uL Urinary Catheter Management Urinary Catheter Management Straight: Cath placed during this visit: yes, but has since been removed by the nurse Insertion date: 06/24/24 Insertion time: 00:20 Removal date: 06/24/24 Removal time: 00:22 OB - PN: A/P Plan - Vaginal Delivery day: 1 Plan: routine care Time Spent with Patient Time: Total time spent is greater than 50% in coordination of care (as documented) at patient's floor/unit and/or counseling patient: Total time spent with greater than 50% in coordination of care (as documented) at patient's floor/unit and/or counseling patient: less than 15 minutes
[2024-06-25 08:44] VITALS: BP 115/57; PULSE 65; TEMP 36.7
[2024-06-25] MEDS: SERTRALINE HCL 50 MG TABLET PO (08:47)
[2024-06-25] MEDS: DOCUSATE SODIUM 100 MG CAPSULE PO (08:47)
[2024-06-25] MEDS: GLYCERIN/WITCH HAZEL PADS 1 PAD TOPICAL (19:49)
[2024-06-25 20:55] VITALS: BP 120/73; PULSE 73; TEMP 35.6
[2024-06-25 20:56] VITALS: TEMP 35.7
== END 2024-06-25 22:00 | disposition home or self-care (01) | DRG 807 ==
PROVIDERS: Admitting Provider Obstetrics & Gynecology; PCP Family Medicine; Visit Provider Obstetrics & Gynecology
DX: O26.893 Other specified pregnancy related conditions, third trimester (principal); Z37.0 Single live birth; Z67.41 Type O blood, Rh negative; O70.0 First degree perineal laceration during delivery; Z3A.38 38 weeks gestation of pregnancy
CPT/HCPCS: 36415; 51701; 59025; 59050; 59410; 80307; 81001; 85025; 85027; 85461; 86850; 86900; 86901; 87086; J2791; J2795; J3010

== ENCOUNTER 2024-06-27 08:07 | Outpatient (OUT) | payer OTHER, SELFPAY ==
--- OUTSIDE RECORDS SUMMARY | 2024-06-27 08:12 | XMS_ITS | CCD ---
Author Organization [facility] Care Team Providers Care Dental Mechanic Name Role Phone Unavailable Primary Care Provider UnavailVAISHALI Thomas Attending Unavailable FELICITAS BOOTHE Referring Unavailable Urbano Rich MD Primary Care Provider [phone] FLORO, ISIDRA L Attending Unavailable FLORO, ISIDRA [...] Class(es) Dates Sig (Normalized) Sig (Original) multivit 40-wlta-ijujxg 1-dha (PNV-DHA) 27 mg iron-1 mg -300 mg capsule (2 sources) Start: 08-29-2023 take 1 capsule by mouth in the morning multivit 86-sasu-giufpt 1-dha (PNV-DHA) 27 mg iron-1 mg -300 mg capsule Indications: Desire for Take 1 capsule by mouth in the morning. 90 capsule 3 08/29/2023 Active Prenat w/o U-IC-Tchivxk-FA-DHA (PNV-DHA) 27-0.6-0.4-300 MG capsule (8 sources) Start: 08-29-2023 take 1 capsule by mouth in the morning Prenat w/o B-PP-Wrznmor-FA-DH A (PNV-DHA) 27-0.6-0.4-300 MG capsule Take 1 [...] Results Test Name Value Interpretation Reference Range Facility ALL CBC WITH AUTO DIFFon BASOPHILS ABSOLUTE AUTO 0 [facility] Basophils/100 WBC (Bld) 0.2 % 0.2 - 2.0 % [facility] Eosinophils/100 WBC (Bld) 0.7 % Low 0.9 - 7.0 % [facility] Erythrocyte distribution width (RBC) [Ratio] 13.3 % 11.0 - 15.0 % [facility] Hematocrit (Bld) [Volume fraction] 31.7 % Low 36.0 - 48.0 % [facility] Hem[facility] (Bld) [Mass/Vol] 10.3 g/dL Low 12.0 - 16.0 g/dL [facility] IMMATURE GRANULOCYTES ABS AUTO 0.04 High [facility] Immature granulocytes/100 WBC (Bld) 0.4 % 0.0 - 0.5 % [facility] Interpretation and review of laboratory results Abnormal [facility] LYMPHOCYTES ABSOLUTE AUTO 2.3 [facility] Lymphocytes/100 WBC (Bld) 21.4 % 20.5 - 60.0 % [facility] MCH (RBC) [Entitic mass] 29 pg 26.7 - 34.0 pg [facility] MCHC (RBC) [Mass/Vol] 32.5 g/dL 29.9 - 35.2 g/dL [facility] MCV (RBC) [Entitic vol] 89.3 fL 81.0 - 99.0 fL [facility] MONOCYTES ABSOLUTE AUTO 0.7 [facility] Monocytes/100 WBC (Bld) 6.1 % 1.7 - 12.0 % [facility] NEUTROPHILS ABSOLUTE AUTO 7.7 High [facility] Neutrophils/100 WBC (Bld) 71.2 % 43.0 - 75.0 % [facility] Platelet mean volume (Bld) [Entitic vol] 10.5 fL 9.5 - 13.5 fL [facility] EO # 0.1 [facility] PLT 180 [facility] RBC 3.55 Low [facility] WBC 10.7 [facility] UA (CLEAN/CATCH) HOME CARE CONSULTANT/KANDY RO IF IND.on 06-23-2024 BILIRUBIN URINE Negative NEGATIVE [facility] BLOOD URINE MODERATE Abnormal NEGATIVE [facility] re Clarity (U) CLEAR CLEAR [facility] Color (U) YELLOW YELLOW [facility] GLUCOSE URINE UA Negative NEGATIVE mg/dL [facility] Interpretation and review of laboratory results Abnormal [facility] Ketones Ql (U) Negative NEGATIVE mg/dL [facility] Leukocyte esterase Test strip Ql (U) Negative NEGATIVE [facility] NITRITE URINE Negative NEGATIVE [facility] care pH (U) 6.0 [pH] 5.0 - 9.0 [facility] PROTEIN URINE Negative NEG/TRACE mg/dL [facility] SPECIFIC GRAVITY URINE >=1.030 Abnormal 1.005 - 1.025 [facility] URINE MICROSCOPIC INDICATED YES [facility] UROBILINOGEN URINE 2.0 EU/dL Abnormal 0.2 - 1.0 EU/dL [facility] US OB FOLLOW UP TRANSABDOMIN AL APPROACHon [...] Weight: 1542 gm / 3lbs, 6 oz (8236-1342 gm) [place] Normal: 1559 gm (1383-7613 gm) [place] Wt%: 47% for 30.0 wks [...] surrounding subchorionic hemorrhage. Yolk sac not visualized. [place] rump length measures 3.5 cm, which corresponds [...] Normal Not Available Cytologyon 09-20-2023 Cytology Normal [facility] Comment on above: Result Comment: [facility] [place] Orders [facility] Medicine [address] [place] [address] Gynecologic Cytology Consultation Patient Name:CHEYANNE CARRANZA:2000 (Age: 23)Gender:FTaken:4Reported:4Physician(s):Felicitas Boothe C.N.M. ([phone])Copy To: Rec. #:[id number]: #[id number] Final Cytologic Interpretation ThinPrep Pap Test (Cervical): Satisfactory for evaluation. A transformation zone component is present. Partially obscuring lubricant-type artifact present. NEGATIVE FOR INTRAEPITHELIAL LESION OR MALIGNANCY. [facility] [place]09/27/2023 [facility]ation [facility] [address], License number: [id number]. Electronically Signed Out By PHIL Aparicio(ASCP) Date of Last Menstrual Period: (None Given) Other Clinical Conditions: Z01.419 Front Desk Assistant exam wo/abn findings Z12.72 Screeing for malignant neoplasm of vagina Source of Specimen ThinPrep Pap Test (Cervical) Thin Prep Pap (INDUSTRIAL SWEEPER CLEANER) Fee Code(s): G0145 Vital Signs Date Time Vital Sign Value Performing Clinician Gianna white 2024 08:54-0400 Body mass index (BMI) [Ratio] 27.72 kg/m2 Isidra Floro CNM Work Phone: [facility] 2024 08:54-0400 Body weight 80.29 kg Isidra Floro CNM Work Phone: [facility] 2024 08:54-0400 Diastolic blood pressure 70 mm[Hg] Isidra Floro CNM Work Phone: [facility] 2024 08:54-0400 Systolic blood pressure 118 mm[Hg] Isidra Floro CNM Work Phone: [facility] 06-05-2024 08:45-0400 Body mass index (BMI) [Ratio] 27.41 kg/m2 Isidra Floro CNM Work Phone: [facility] 06-05-2024 08:45-0400 Body weight 79.38 kg Isidra Floro CNM Work Phone: [facility] 06-05-2024 08:45-0400 Diastolic blood pressure 80 mm[Hg] Isidra Floro CNM Work Phone: [facility] 06-05-2024 08:45-0400 Systolic blood pressure 118 mm[Hg] Isidra Floro CNM Work Phone: [facility] 09-20-2023 15:07-0500 Body height 170.2 cm [facility] 09-20-2023 15:07-0500 Body mass index (BMI) [Ratio] 22.84 kg/m2 [facility] 09-20-2023 15:07-0500 [facility] 15:07-0500 Diastolic blood pressure 64 mm[Hg] [facility] Lead Web Developer [facility] 09-20-2023 15:07-0500 Systolic blood pressure 112 mm[Hg] [facility] Lead Web Developer [facility] 08-29-2023 14:22-0500 Body height 170.2 cm Vaishali Loyao GAS ENGINE REPAIRER-FORM LAYER Work Phone: [facility] 08-29-2023 14:22-0500 Body mass index (BMI) [Ratio] 23.05 kg/m2 Vaishali Loyao GAS ENGINE REPAIRER-FORM LAYER Work Phone: [facility] 08-29-2023 14:-050 Body weight 66.77 kg Vaishali Loyao GAS ENGINE REPAIRER-FORM LAYER Work Phone: [facility] 08-29-2023 14:22-0500 Diastolic blood pressure 62 mm[Hg] Vaishali Loyao GAS ENGINE REPAIRER-FORM LAYER Work Phone: [facility] 08-29-2023 14:22-0500 Systolic blood pressure 116 mm[Hg] Vaishali Loyao GAS ENGINE REPAIRER-FORM LAYER Work Phone: [facility] Encounters Encounter Date Encounter Type Care Provider Facility Start: 06-25-2024 End: 06-25-2024 [facility] Result Encounter Jose Juan Fly DO Work Phone: [facility] Unsolicited Start: 06-25-2024 End: 06-25-2024 [facility] Result Encounter Jose Juan Fly DO Work Phone: [facility] Unsolicited Start: 06-23-2024 End: 06-23-2024 [facility] Result Encounter Jose Juan Fly DO Work Phone: [facility] Unsolicited Start: 06-23-2024 End: 06-23-2024 [facility] Result Encounter Jose Juan Lfy DO Work Phone: [facility] Unsolicited Start: 2024 End: 2024 Bamboo flowsheet Isidra Rowe CNM Work Phone: [facility] Start: [...] Available Start: 01-04-2024 End: 01-04-2024 ambulatory ISIDRA JOSUEO Not Available Start: 12-07-2023 End: 12-07-2023 ambulatory ISIDRA JOSUEO Not Available Start: 09-20-2023 End: 09-20-2023 ambulatory [facility] Start: 09-20-2023 Encounter for gynecological examination (general) (routine) without abnormal findings [facility] Start: 09-20-2023 End: 09-20-2023 Initial preventive medicine new pt age 18-39yrs [facility] Ob Lead Web Developer [facility] Comment on above: Well woman exam with routine gynecological exam (Primary Dx); Smear, vaginal, as part of routine gynecological examination Start: 09-20-2023 End: 09-20-2023 Patient encounter procedure [facility] Lead Web Developer [facility] Work Phone: Start: 09-20-2023 End: 09-20-2023 Patient encounter status [facility] Lead Web Developer [facility] Start: 09-20-2023 End: 09-21-2023 ambulatory [facility] Start: 09-20-2023 Encounter for gynecological examination (general) (routine) without abnormal findings [facility] Start: 08-29-2023 End: 08-29-2023 ambulatory [facility] Start: 08-29-2023 End: 08-29-2023 Patient encounter procedure [facility] Juliocesar GAS ENGINE REPAIRER-FORM LAYER Work Phone: [facility] Comment on above: Encounter for Nexpla non removal (Primary Dx); Desire for Procedures Date Procedure Procedure Detail Performing Clinician Start: 06-25-2024 ALL CBC WITH AUTO DIFF Jose Juan Fly DO Work Phone: Start: 06-23-2024 [facility] UA (CLEAN/CATCH) HOME CARE CONSULTANT/MICRO IF IND. Jose Juan Fly DO Work Phone: Start: 09-20-2023 Adult depression screening assessment [facility] Lead Web Developer Plan of Treatment Date Care Activity Detail Author Start: 09-20-2024 Adult BMI Screening Adult BMI Screen ing [facility] Start: 09-20-2024 Depression Screening Depression Scre ening [facility] Start: 09-20-2024 Tobacco Screening Tobacco Screening [facility] Start: 08-29-2024 Adult BMI Screening Adult BMI Screen ing [facility] Start: 08-29-2024 Tobacco Screening Tobacco Screening [facility] Start: 07-01-2024 End: 07-01-2024 Patient encounter procedure 07/01/2024 1:30 PM EDT Routine [facility] [address] [facility] [place] [address] Isidra Rowe, CNM [address] [place] [place] [address] [facility] Start: 06-24-2024 End: 06-24-2024 Patient encounter procedure 06/24/2024 2:30 PM EDT Routine [facility] [address] [facility] [place] [address] Isidra Rowe, CNM [address] [place] [place] [address] [facility] Start: 2024 End: 2024 Patient encounter procedure 2024 8:45 AM EDT Routine [facility] [address] [facility] [place] [id number] Isidra Rowe, CNM [address] [place] [address] [facility] Start: 06-05-2024 End: 06-05-2025 STREPTOCCOUS, GROUP B CULTURE STREPTOCCOUS, GROUP B CULTURE Lab Routine screening for streptococcus B Expected: 06/05/2024 (Approximate), Expires: 06/05/2025 [facility] Work Phone: Comment on above: Expected: 06/05/2024 (Approximate), Expires: 06/05/2025 Start: 05-05-2024 Influenza vaccination Influenza Vacc ine (#1) [facility] Start: 09-20-2023 End: 09-20-2023 Patient encounter procedure 09/20/2023 2:45 PM EST [facility] [address] [place] [id number] [facility] Start: 05-05-2023 Influenza vaccination Influenza Vacc ine [facility] Start: 2019 Screening for malign ant neoplasm of cervix Pap Smear [facility] Start: 2017 DTaP,Tdap and Td Vaccines (1 - Tdap) DTaP,Tdap and Td Vaccines (1 - Tdap) [facility] Start: 2010 Depression Screening Depression Scre ening [facility] End: 09-20-2024 Cytopathology procedure, preparation of smear, genital source Pap Smear Pathology and Cytology Routine Smear, vaginal, as part of routine gynecological examination 1 Occurrences starting 09/20/2023 until 09/20/2024 [facility] Work Phone: Comment on above: 1 Occurrences starti ng 09/20/2023 until 09/20/2024 Immunizations Immunization Date Immunization Notes Care Provider Parul moody 09-11-2020 influenza virus vacc ine, unspecified formulation Isidra Soledad TUCKER Work Phone: [facility] Healthcare Payers Date Payer Category Payer Private Health Insurance [employer] [facility] [id number] 2023 Unknown [id number] 2023 Unknown 2023 Unknown [id number] 1998 Unknown [id number] 2.16.840.1.669359.3.579. 2.1286 1998 Unknown [id number] 2.16.840.1.486247.3.579. 2.1286 1998 Unknown [id number] 2.16.840.1.796345.3.579. 2.1286 1998 Unknown [id number] 2.16.840.1.594391.3.579. 2.125 1998 Unknown [id number] 2.16.840.1.161665.3.579. 2.1259 1998 Unknown [id number] 2.16.840.1.866434.3.579. 2.1259 1998 Unknown [id number] 2.16.840.1.256010.3.579. 2.1259 1998 Unknown [id number] 2.16.840.1.680614.3.579. 2.1259 1998 Unknown [id number] 2.16.840.1.235634.3.579. 2.1259 1998 Unknown [id number] 2.16.840.1.490186.3.579. 2.1259 1998 Unknown [id number] 2.16.840.1.593693.3.579. 2.1259 1998 Unknown [id number] 2.16.840.1.115739.3.579. 2.125 1998 Unknown [id number] 2.16.840.1.630298.3.579. 2.1259 1998 Unknown [id number] 2.16.840.1.216005.3.579. 2.1259 2000 Unknown [id number] 2.16.840.1.312678.3.579. 2.1259 Social History Date Type Detail Facility Start: 08-29-2023 End: 12-07-2023 Tobacco smoking status NHIS Never smoked tobacco [facility] Start: 08-29-2023 End: 12-07-2023 Tobacco use and exposure Smokeless tobacco non-user [facility] Start: 08-29-2023 End: 09-20-2023 Alcohol intake Current drinker of alcohol (finding) [facility] Start: 08-29-2023 End: 12-07-2023 History of Social function [facility] Start: 08-29-2023 End: 12-07-2023 Tobacco use panel [facility] Housing Instability Unknown [facility] Start: 08-29-2023 Alcohol Comment social [facility] Start: 2000 Sex Assigned At Not on file [facility] How often to you hav e a drink containing alcohol? Monthly or less [facility] How many standard dr inks containing alcohol do you have on a typical day? 3 or 4 [facility] How often do you hav e 6 or more drinks on 1 occasion? Never [facility] Start: 12-07-2023 Alcoholic beverage intake Ex-drinker (finding) [facility] Start: 10-11-2023 [facility] History of [...] 23 y.o. 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 Periods are regular every 28-30 days, [...] wks. Ago. 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 Follow up as needed. Next pap [...] APRN-CNM 09/20/23 1720 documented in this encounter [facility] History of Present illness Narrative [...] 1505 documented in this encounter [facility] Evaluation note Note Date & Type Note Facility Evaluation note Diagnosis Encounter for Nexplanon removal- Primary Desire for documented in this encounter [facility] Evaluation note Note Date & Type Note Facility Evaluation note Diagnosis Well woman exam with routine gynecological exam- Primary Routine gynecological examination Smear, vaginal, as part of routine gynecological examination Special screening for malignant neoplasms, vagina documented in this encounter [facility] Evaluation note Note Date & Type Note Facility Evaluation note Diagnosis Encounter for supervision of other normal , third trimester- Primary screening for streptococcus B screening for Streptococcus B documented in this encounter [facility] Evaluation note Note Date & Type Note Facility Evaluation note Diagnosis Encounter for supervision of other normal , third trimester- Primary Rh negative state in antepartum period, third trimester documented in this encounter [facility] Healthcare Instructions Attachments Note Date & Type Note Facility Instructions The following attachments cannot be sent through Care Everywhere.How to plan and prepare for a healthy (Green[place]ic)documented in this encounter [facility] Instructions Attachments Note Date & Type Note Facility Instructions The following attachments cannot be sent through Care Everywhere.How to Perform Breast Self-Examination (Green[place]ic)documented in this encounter [facility] Summary Purpose Family History No Family History Records FoundNo Family History Records FoundNo Family History Records Found Advance Directives No Advanced Directives Records FoundNo Advanced Directives Records FoundNo Advanced Directives Records Found Additional Source Comments Reason for Visit (unrecogniz ed section and content) Reason Comments Contraception Reason Comments Annual Exam INFORMATION SOURCE (unrecogn ized section and content) DATE CREATED AUTHOR 09/23/2023 [facility] DATE CREATED AUTHOR AUTHOR'S ORGANIZ ATION [facility] DATE CREATED AUTHOR AUTHOR'S ORGANIZ ATION 06/17/2024 [facility] Care Teams (unrecognized sec tion and content) Dental Mechanic Relationship Specialty Start Date End Date Urbano Rich MD [address] [facility] [address] [place] [address] PCP - General Family Medicine 01/10/23 Dental Mechanic Relationship Specialty Start Date End Date Urbano Rich MD [address] [facility] [address] [place] [address] PCP - General Family Medicine 01/10/23 Dental Mechanic Relationship Specialty Start Date End Date Urbano Rich MD [address] [facility] [address] [place] [address] PCP - General Family Medicine 01/10/23 Dental Mechanic Relationship Specialty Start Date End Date Urbano Rich MD [address] [facility] [address] [place] [address] PCP - General Family Medicine 01/10/23 Dental Mechanic Relationship Specialty Start Date End Date Urbano Rich MD [address] [facility] [address] [place] [address] PCP - General Family Medicine 01/10/23 Dental Mechanic Relationship Specialty Start Date End Date Urbano Rich MD [address] [facility] [address] [place] [address] PCP - General Family Medicine 01/10/23 FOR [...] BE BASED ON THE PRIMARY CLINICAL RECORDS. [facility]. provides no warranty or guarantee of the accuracy or completeness of information in this document.
[2024-06-27 15:10] VITALS: BP 112/68; PULSE 75; TEMP 36.8; O2SAT 97
--- NOTE | 2024-06-27 15:10 | PC.NURSE ---
Tanesha and 3 day old Maye arrive for follow up appointment. Mom has lab slip for repeat bili draw, but did not stop in out pt lab for test. Will do test during follow up appointment. LC draws blood sample with mother's permission and sends to lab. VSS and assessment WNL for baby Maye with exception of dark sara/jaundiced appearance. Mother states infant had significant facial bruising after delivery. weight obtained and has 4.5% weight loss, 5 wets since midnight and 4 stools. with wet and large yell ow stool with assessment. Infant to breast independently per mom. Shown to lay baby belly to belly for easier, deeper latch for infant. Mom reports increased comfort for herself as well. Experienced breast feeding mother as nursed last child over 1 year. Tanesha with VSS and assessment WNL. Milk in this AM and feedings going well. Latches independently. No concerns for self or questions about infant. Sent to Dr Pool office for scheduled appointment. Bili results called to office information given to Amanda management information systems director. Dr Pool will handle elevated jaundice.
== END 2024-06-27 13:35 | disposition home or self-care (01) ==
LOC: FBCO 08:08
PROVIDERS: PCP Family Medicine; Visit Provider Obstetrics & Gynecology
DX: Z39.2 Encounter for routine postpartum follow-up (principal)